=== PATIENT | male | born 1950 | race Two or more races ===

== ENCOUNTER 2019-01-12 20:22 | Emergency (ER) | payer MEDICARE, MEDICAID ==
[~2019-01-12] VITALS: Ht 175.3 cm; Wt 108.9 kg
[2019-01-12] MEDS ORDERED: IV NS 0.9% 500 ML BAG IV ONE (21:00)
[2019-01-12 21:05] LABS: BASOPHILS % (AUTO) 0.5 % (0.0-2.0); EOSINOPHILS % (AUTO) 2.8 % (0.0-6.0); HEMATOCRIT 37 % (39-51); HEMOGLOBIN 12.2 g/dL (13.5-17.5); LYMPHOCYTES % (AUTO) 10.2 % (20.0-44.0); MEAN CORPUSCULAR HGB CONC 33 g/dl (31.0-36.0); MEAN CORPUSCULAR VOLUME 90 fL (80-96); MONOCYTES % (AUTO) 6.6 % (2.0-12.0); NEUTROPHILS % (AUTO) 79.9 % (43.0-81.0); PLATELET COUNT (AUTO) 297 /CMM (150-450); RED BLOOD CELL COUNT(AUTO) 4.09 MIL/uL (4.5-6.0); WHITE BLOOD COUNT (AUTO) 8.3 K/uL (4.3-11.0)
[2019-01-12 21:06] LABS: LYMPHOCYTES # (AUTO) 0.8 /CMM (0.8-4.8); MONOCYTES # (AUTO) 0.5 /CMM (0.1-1.30); NEUTROPHILS # (AUTO) 6.6 /CMM (1.8-8.9)
[2019-01-12 21:17] LABS: CALCIUM, SERUM 9.1 mg/dL (8.5-10.1); CARBON DIOXIDE 30 mmol/L (21-32); CHLORIDE 101 mmol/L (98-107); CREATININE 1.6 mg/dL (0.6-1.3); GLUCOSE 216 mg/dL (74-106); POTASSIUM 4.7 mmol/L (3.5-5.1); SODIUM SERUM 134 mmol/L (136-145); UREA NITROGEN, BLOOD 43 mg/dL (7-18)
[2019-01-12 21:23] LABS: ALANINE AMINOTRANSFERASE 10 U/L (12-78); ALBUMIN 2.3 g/dL (3.4-5.0); ALKALINE PHOSPHATASE 66 U/L (46-116); ASPARTATE AMINOTRANSFERASE 6 U/L (15-37); BILIRUBIN,DIRECT 0.1 mg/dL (0.0-0.2); BILIRUBIN,TOTAL 0.2 mg/dL (0.2-1.0)
[2019-01-12 22:43] LABS: APPEARANCE,URINE CLEAR (CLEAR); BILIRUBIN,URINE NEGATIVE (NEGATIVE); BLOOD, URINE 1+ Ery/uL (NEGATIVE); COLOR,URINE YELLOW (YELLOW); KETONES,URINE NEGATIVE (NEGATIVE); LEUKOCYTE ESTERASE ,URINE 3+ (NEGATIVE); NITRITE, URINE NEGATIVE (NEGATIVE); PROTEIN,URINE 1+ mg/dl (NEGATIVE); UGLUCOSE NEGATIVE (NEGATIVE)
[2019-01-12 22:47] LABS: BACTERIA,URINE Few /HPF (None Seen); SQUAMOUS EPITHELIAL CELL,UR Rare /HPF (None Seen); WBC,URINE TOO NUMEROUS TO COUN /HPF (0-3)
--- NOTE | 2019-01-12 23:15 | NUR ---
KEDAR LEON TO [facility] ETA 0030 HOURS TRIP#[id number]
[2019-01-12] MEDS ORDERED: KETOROLAC TROMETHAMINE INJ 30 MG/ML VIAL ONE (23:18)
[2019-01-12] MEDS ORDERED: CIPROFLOXACIN HCL 500 MG TABLET ONE (23:18)
[2019-01-12] MEDS ORDERED: CIPROFLOXACIN HCL 500 MG TABLET PO ONE (23:30)
[2019-01-12] MEDS ORDERED: KETOROLAC TROMETHAMINE INJ 30 MG/ML VIAL IV ONE (23:30)
[2019-01-13 01:20] VITALS: BP 94/59
== END 2019-01-13 01:24 ==
LOC: ER 20:29
DX: N39.0 Urinary tract infection, site not specified (principal); N43.2 Other hydrocele; F31.9 Bipolar disorder, unspecified; I10 Essential (primary) hypertension; E11.9 Type 2 diabetes mellitus without complications
CPT/HCPCS: 36415; 76870; 80048; 80076; 81001; 84484; 85025; 85730; 87086; 93005; 96374; 99285; A4606; J1885; J7040; 81000-TC